=== PATIENT | female | born 1955 | race Native Hawaiian/Other Pacific Islander ===

== ENCOUNTER 2022-03-08 09:29 | Emergency (ER) | payer SELFPAY ==
[~2022-03-08] VITALS: Ht 149.9 cm; Wt 49.9 kg
[2022-03-08 09:33] VITALS: BP 121/72
--- NOTE | 2022-03-08 09:37 | NUR ---
Pt ambulated to bed 4.
--- NOTE | 2022-03-08 10:06 | NUR ---
pt c/o urinary frequency and dysuria x4 days, pt taking levaquin from [place] without any relief. ua obtained and walked to lab.
[2022-03-08 11:22] LABS: APPEARANCE,URINE CLEAR (CLEAR); BILIRUBIN,URINE NEGATIVE (NEGATIVE); BLOOD, URINE 3+ (NEGATIVE); COLOR,URINE YELLOW (YELLOW); LEUKOCYTE ESTERASE ,URINE TRACE (NEGATIVE); NITRITE, URINE NEGATIVE (NEGATIVE); UGLUCOSE NEGATIVE (NEGATIVE)
[2022-03-08 11:36] LABS: FINE GRANULAR CASTS,URINE 0-10 /LPF (None Seen); RBC,URINE 11-20 (MOD) /HPF (0-5)
[2022-03-08] MEDS ORDERED: SULF-59 PO (11:45)
[2022-03-08 11:54] VITALS: BP 122/68
== END 2022-03-08 11:55 | disposition home or self-care (01) ==
LOC: MED 09:29
DX: N30.01 Acute cystitis with hematuria (principal); Z88.0 Allergy status to penicillin
CPT/HCPCS: 81001; 87086; 99283